=== PATIENT | male | born 1965 ===

== ENCOUNTER 2017-12-21 14:49 | Emergency (ER) | payer OTHER ==
[2017-12-21 15:16] VITALS: PULSE 95; RESP 18; TEMP 98.1; O2SAT 98
--- NOTE | 2017-12-21 16:01 | ED PDOC ---
HPI: Eye Injury/Pain Time Seen by Provider: 12/21/17 15:57 Chief Complaint (Nursing): Eye Problem Chief Complaint (Provider): headache History Per: Patient (52 y/o male here with headache x 1 week frontal region. Notes nasal discharge/cough this week. No fevers/chills. Notes left eye redness today. Denies any change in vision. Has been using eye drops this week on eye.) Past Medical History Reviewed: Historical Data, Nursing Documentation, Vital Signs Vital Signs: Last Vital Signs Temp 98.1 F 12/21/17 15:12 Pulse 95 H 12/21/17 15:12 Resp 18 12/21/17 15:12 BP 166/91 H 12/21/17 15:12 Pulse Ox 98 12/21/17 15:12 - Family History Family History: States: No Known Family Hx - Allergies Allergies/Adverse Reactions: Allergies Allergy/AdvReac Type Severity Reaction Status Date / Time No Known Allergies Allergy Verified 12/21/17 15:12 Review of Systems ROS Statement: Except As Marked, All Systems Reviewed And Found Negative Physical Exam - Reviewed Nursing Documentation Reviewed: Yes Vital Signs Reviewed: Yes - Physical Exam Appears: Positive for: Well, Non-toxic, No Acute Distress Head Exam: Positive for: ATRAUMATIC, NORMAL INSPECTION, NORMOCEPHALIC Skin: Positive for: Normal Color, Warm, DRY Eye Exam: Positive for: EOMI, PERRL, Other (subconjunctival hemorrhage left eye) . Negative for: Normal appearance (no fluorescein uptake) ENT: Positive for: Normal ENT Inspection Neck: Positive for: Normal, Painless ROM Cardiovascular/Chest: Positive for: Regular Rate, Rhythm Respiratory: Positive for: CNT, Normal Breath Sounds Gastrointestinal/Abdominal: Positive for: Normal Exam, Soft Back: Positive for: Normal Inspection Extremity: Positive for: Normal ROM Neurologic/Psych: Positive for: Alert, Oriented - ECG O2 Sat by Pulse Oximetry: 98 - Progress ED Course And Treament: HEAD CT: NAD REPEAT BP 151/98 PATIENT TO F/U WITH PMD FOR FURTHER EVALUATION OF BP. ADVISED TO TAKE REPEAT BP READINGS AT HOME THIS WEEK AND LOW SODIUM DIET. ADVISED F/U WITH DR. KELLEY OPHTHALMOLOGY FOR EVALUATION OF SUBCONJUNCTIVAL HEMORRHAGE. Disposition - Clinical Impression Clinical Impression: Subconjunctival hemorrhage, Headache - Patient ED Disposition Is Patient to be Admitted: No - Disposition Referrals: Gurland,Jed, MD [Staff Provider] - Disposition: Routine/Home Disposition Time: 18:41 Condition: FAIR Instructions: Headache, Adult (DC), Low Salt Diet, High Blood Pressure (DC), Subconjunctival Hemorrhage Forms: [employer] ([email or web address])
--- NOTE | 2017-12-21 18:22 | CT ---
PROCEDURE: CT HEAD WITHOUT CONTRAST. HISTORY: Headache COMPARISON: None available. TECHNIQUE: Axial computed tomography images were obtained through the head/brain without intravenous contrast. Radiation dose: Total exam DLP = 805.42 mGy-cm. This CT exam was performed using one or more of the following dose reduction techniques: Automated exposure control, adjustment of the mA and/or kV according to patient size, and/or use of iterative reconstruction technique. FINDINGS: HEMORRHAGE: No acute parenchymal, subarachnoid or extra-axial hemorrhage. BRAIN: No evidence of large acute infarct. . No obvious parenchymal nor extra-axial masses or collections seen on this noncontrast study. Mild generalized volume loss with prominent cortical sulci/subarachnoid spaces VENTRICLES: No obstructive hydrocephalus. CALVARIUM: There are no acute calvarial fractures PARANASAL SINUSES: Unremarkable as visualized. No significant inflammatory changes. MASTOID AIR CELLS: Unremarkable as visualized. No inflammatory changes. OTHER FINDINGS: None. IMPRESSION: No acute intracranial hemorrhage. No evidence of large acute infarct. Mild generalized volume loss.
[2017-12-21 18:39] VITALS: BP 151/98
== END 2017-12-21 19:05 | disposition home or self-care (01) ==
LOC: H.ER 14:49
DX: R51 Headache (principal); H11.32 Conjunctival hemorrhage, left eye